=== PATIENT | female | born 1990 | race Caucasian/White ===

== ENCOUNTER 2016-08-19 18:07 | Emergency (ER) | payer OTHER ==
[~2016-08-19 18:07] MED LIST: CIPRO500 MG PO; FIORICET 50-301 EACH PO; MOTRIN800 MG PO; PERCOCET 5/31 TABLET PO; PRENATAL TABLE1 EAC3 PO; TYLENOL REGULA325 MG PO; ZANTAC150 MG PO
[2016-08-19] MEDS ORDERED: NAPROSYN500 MG PO (19:18)
== END 2016-08-19 19:58 | disposition home or self-care (01) ==
LOC: TRA 18:07
DX: R68.84 Jaw pain (principal); R10.84 Generalized abdominal pain; R07.9 Chest pain, unspecified; V49.50XA Passenger injured in collision with unspecified motor vehicles in traffic accident, initial encounter; M79.644 Pain in right finger(s); M54.9 Dorsalgia, unspecified; T14.8 Other injury of unspecified body region
CPT/HCPCS: 70450; 70486; 71010; 72070; 72100; 73130; 80048; 81003; 82150; 83690; 84702; 85025; 86850; 86900; 86901; 99281; 99284; G0480